=== PATIENT | female | born 1950 | race Two or more races ===

== ENCOUNTER 2016-07-29 23:28 | Emergency (ER) | payer MEDICARE ==
[~2016-07-29] VITALS: Ht 154.9 cm; Wt 99.8 kg
[2016-07-30 01:09] LABS: Basophils # (auto) 0 uL; Basophils % (auto) 0.3 % (0.0-2.0); Eosinophils # (auto) 0.3 uL; Eosinophils % (auto) 2.9 % (0.0-7.0); Hematocrit 42.3 % (36.0-46.0); Hemoglobin 13.8 g/dL (12.2-16.2); INR 1.01 (0.9-1.15); Lymphocytes # (auto) 2.6 uL; Lymphocytes % (auto) 28.2 % (10.0-50.0); Mean Corpuscular Hemoglobin 27.8 pg (28.0-32.0); Mean Corpuscular Hgb Conc. 32.7 g/dL (32.0-36.0); Mean Platelet Volume 9.1 fL (7.4-10.4); Monocytes % (auto) 10.7 % (0.0-12.0); Neutrophils # (auto) 5.4 uL; Neutrophils % (auto) 57.9 % (37.0-80.0); Partial Thromboplastin Time 24.5 sec (22.64-33.71); Platelet Count (auto) 305 10^3/uL (140-450); Prothrombin Time 10.4 sec (9.37-12.3); Red Cell Distribution Width 14.5 % (11.6-16.0); White Blood Cell 9.4 10^3/uL (4.4-10.8)
[2016-07-30 01:12] LABS: Albumin 3.5 g/dL (3.4-5.0); BUN/Creatinine Ratio 15.5; Calcium 8.8 mg/dL (8.5-10.1); Potassium 4.1 mmol/L (3.5-5.1)
[2016-07-30 01:15] LABS: Bilirubin, Total 0.3 mg/dL (0.2-1.0); Total Protein 6.8 g/dL (6.4-8.2)
[2016-07-30] MEDS ORDERED: IBUPROFEN 600 MG TAB PO ONE (03:30)
[2016-07-30] MEDS ORDERED: KETOROLAC TROMETH 60MG/2ML VIAL IM ONE (03:30)
[2016-07-30 03:43] VITALS: BP 150/69
== END 2016-07-30 03:56 | disposition home or self-care (01) ==
LOC: ER 23:31
DX: S86.912A Strain of unspecified muscle(s) and tendon(s) at lower leg level, left leg, initial encounter (principal); X58.XXXA Exposure to other specified factors, initial encounter; Y93.89 Activity, other specified; Y99.9 Unspecified external cause status; Y92.89 Other specified places as the place of occurrence of the external cause; Z88.1 Allergy status to other antibiotic agents
CPT/HCPCS: 36415; 73562; 80053; 85025; 85379; 85610; 85730; 93971; 96372; 99285; J1885